=== PATIENT | male | born 1955 | race Caucasian/White ===

== ENCOUNTER 2017-02-15 19:30 | Outpatient (CLI) | payer BC | END 2017-02-15 19:31 | disposition home or self-care (01) | LOC: SLEEPLAB 19:30 | PROVIDERS: ATTEND Family Medicine | DX: G47.33 Obstructive sleep apnea (adult) (pediatric) (principal); E66.9 Obesity, unspecified; E11.9 Type 2 diabetes mellitus without complications | CPT/HCPCS: 95811 ==

== ENCOUNTER 2017-06-21 15:45 | Outpatient (CLI) | payer BC ==
[2017-06-21 16:07] LABS: Hemoglobin 14.3 g/dL (14.0-18.0); Mean Corpuscular HGB CONC 33.7 g/dL (32.0-36.0); Mean Corpuscular Hemoglobin 30.8 pg (27.0-31.0); Mean Corpuscular Volume 91.6 fl (80.0-94.0); Mean Platelet Volume 6.7 fL (7.4-10.4); Platelet Count 215 thou/uL (130-400); RBC Distribution Width 12.4 % (11.5-14.5); Red Blood Cell (RBC) Count 4.64 mill/uL (4.70-6.10); White Blood Cell (WBC) Count 6.9 thou/uL (4.8-10.8)
[2017-06-21 16:18] LABS: Anion Gap 12 mmol/L (10-20); BUN (Urea Nitrogen) 16 mg/dL (8.4-25.7); Calc. Creatinine Clearance 0 mL/min (70-130); Calcium 9.6 mg/dL (7.8-10.44); Carbon Dioxide 27 mmol/L (23-31); Chloride 102 mmol/L (98-107); Estimated GFR-MDRD 81; Glucose 132 mg/dL (80-115); Potassium 4.4 mmol/L (3.5-5.1); Sodium 137 mmol/L (136-145)
== END 2017-06-21 15:46 | disposition home or self-care (01) ==
LOC: LABBT 15:45
PROVIDERS: ATTEND Orthopaedic Surgery
DX: Z01.818 Encounter for other preprocedural examination (principal); S83.242D Other tear of medial meniscus, current injury, left knee, subsequent encounter
CPT/HCPCS: 80048; 85027; 93005; 93010

== ENCOUNTER 2017-06-27 06:17 | Day surgery (SDC) | payer BC ==
[2017-06-21 16:01] VITALS: BMI 45.2
[2017-06-27] MEDS ORDERED: Fentanyl 100 MCG/2 ML VIAL ONE ×2 (06:27→07:22)
[2017-06-27] MEDS ORDERED: Midazolam HCl 2 mg/2 ml Vial ONE (06:27)
[2017-06-27] MEDS ORDERED: PROPOFOL 20 ML ONE (06:28)
[2017-06-27] MEDS ORDERED: CEFAZOLIN/Water 2 GM/20 ML SYRINGE ONE (07:12)
[2017-06-27] MEDS ORDERED: Ondansetron PF 4 MG/2 ML Vial ONE (07:26)
[2017-06-27] MEDS ORDERED: PROPOFOL 200 MG/20 ML VIAL ONE (07:26)
[2017-06-27] MEDS ORDERED: Lidocaine 1% PF 5 ML VIAL ONE (07:26)
--- NOTE | 2017-06-27 09:27 | OP ---
DATE OF PROCEDURE: 06/27/2017 PREOPERATIVE DIAGNOSIS: Medial lateral meniscus tear. POSTOPERATIVE DIAGNOSIS: Medial lateral meniscus tear. OPERATIVE PROCEDURE: Arthroscopic partial medial meniscectomy. SURGEON: Paolo Sharif M.D. ANESTHESIA: General. BLOOD LOSS: Minimal. SPECIMENS: None. DRAINS: None. COMPLICATIONS: None. TOURNIQUET: Not used. FINDINGS AT SURGERY: Some grade 3 chondromalacia on the medial femoral condyle and the lateral femor al condyle. Large complex tear involving most of the posterior horn of the medial meniscus, lateral meniscus central tear. Scope was placed in the lateral portal and probe was placed in medial portal. I probed the meniscus tear medially, determined its extent, I debrided the meniscus using basket fo rceps and smoothed using a 4-0 full radius resector. On the medial compartment I did a partial media l meniscectomy of the tear using just a shaver. The knee was then drained. Sterile dressings aden scruggs
== END 2017-06-27 10:05 | disposition home or self-care (01) ==
LOC: SDC 06:17
PROVIDERS: ATTEND Orthopaedic Surgery
PROC: 0SBD4ZZ Excision of Left Knee Joint, Percutaneous Endoscopic Approach (ICD-10-PCS; principal; 2017-06-27)
DX: S83.272A Complex tear of lateral meniscus, current injury, left knee, initial encounter (principal); S83.242A Other tear of medial meniscus, current injury, left knee, initial encounter; E11.9 Type 2 diabetes mellitus without complications; Z79.82 Long term (current) use of aspirin; Z79.84 Long term (current) use of oral hypoglycemic drugs; Z79.899 Other long term (current) drug therapy; Z96.642 Presence of left artificial hip joint; Z98.890 Other specified postprocedural states
CPT/HCPCS: G8978-GP-CJ; G8979-GP-CJ; G8980-GP-CJ; J2001; J2250; J2405; J2704; J3010

== ENCOUNTER 2017-11-28 12:00 | Inpatient (IN) | payer BC ==
[2017-11-28 12:21] VITALS: BMI 46.7
[2017-12-10] MEDS ORDERED: Sodium Chloride 0.9% 100 ML ONE (05:57)
[2017-12-10] MEDS ORDERED: CEFAZOLIN/Water 2 GM/20 ML SYRINGE ONE (05:57)
[2017-12-10] MEDS ORDERED: Fentanyl 100 MCG/2 ML VIAL ONE ×2 (06:25→09:30)
[2017-12-10] MEDS ORDERED: Lidocaine 1% (PF) 30 ML VIAL ONE (06:25)
[2017-12-10] MEDS ORDERED: Midazolam HCl 2 mg/2 ml Vial ONE (06:25)
[2017-12-10] MEDS ORDERED: HYDROcodone/Acetaminophen 10/325 mg Tablet PO PRN (06:29)
[2017-12-10] MEDS ORDERED: traMADol HCl 50 MG TAB PO PRN ×3 (06:29→06:59)
[2017-12-10] MEDS ORDERED: Ropivacaine HCl/PF 250 ML in Premix Bag 1 BAG NERVE BLCK SCH (06:29)
[2017-12-10] MEDS ORDERED: Ketorolac Tromethamine 30 MG/ML VIAL IVP PRN (06:29)
[2017-12-10] MEDS ORDERED: Promethazine HCl 25 MG/ML VIAL IM PRN ×3 (06:29→07:42)
[2017-12-10] MEDS ORDERED: Ondansetron HCl/PF 4 MG/2 ML Vial IVP PRN ×3 (06:29→07:42)
[2017-12-10] MEDS ORDERED: Fentanyl 100 MCG/2 ML VIAL IV PRN (06:29)
[2017-12-10] MEDS ORDERED: Zolpidem Tartrate 5 MG TAB PO PRN ×2 (06:29→06:59)
[2017-12-10] MEDS ORDERED: Fentanyl 100 MCG/2 ML VIAL SLOW IVP PRN (06:59)
[2017-12-10] MEDS ORDERED: diphenhydrAMINE 25 MG CAP PO PRN (06:59)
[2017-12-10] MEDS ORDERED: Acetaminophen 325 MG TAB PO PRN (06:59)
[2017-12-10] MEDS ORDERED: Promethazine HCl 25 MG/ML VIAL SLOW IVP PRN (07:42)
[2017-12-10] MEDS ORDERED: Citrucel 500 MG TAB PO SCH (09:00)
[2017-12-10] MEDS ORDERED: Non-Formulary Item 1 EACH (Metformin Hcl [Metformin Hcl] 1 TAB) PO SCH (09:00)
[2017-12-10] MEDS ORDERED: Non-Formulary Item 1 EACH (Cholecalciferol (Vitamin D3) [Vitamin D3] 5,000 UNIT) PO SCH (09:00)
[2017-12-10] MEDS ORDERED: Non-Formulary Item 1 EACH (Multivitamin [Multivitamins] 1 CAP) PO SCH (09:00)
--- NOTE | 2017-12-10 10:06 | RAD ---
TWO VIEWS RIGHT KNEE: History: Status post arthroplasty. Comparison: None. FINDINGS: Right knee arthroplasty is noted. There are expected post-operative changes in the soft tissues. IMPRESSION: Status post right knee arthroplasty. POS: [facility]
--- NOTE | 2017-12-10 10:52 | OP ---
PREOPERATIVE DIAGNOSIS: Degenerative joint disease, right knee. POSTOPERATIVE DIAGNOSIS: Degenerative joint disease, right knee. SURGEON: Paolo Sharif M.D. CALL CENTER TRAINER: MELODY Pino. BLOOD LOSS: Minimal. SPECIMEN: None. DRAINS: None. COMPLICATIONS: None. IMPLANTS USED: [place] [employer]lon 6 femur, 6 tibia, 9 mm CSX3 polyethylene and A38 patella. PROCEDURE IN DETAIL: After informed consent was obtained in the preoperative holding area. The destiny ent was taken to the operative suite where general anesthesia was induced. Once adequate level of ge neral anesthesia was obtained, the patient was positioned and a well-padded tourniquet was placed braulio und the right proximal thigh. The right lower extremity was then prepped and draped in the usual roque rile fashion. Prior to exsanguination, a time out was called and all members of the surgical team ag jacinda upon site, surgeon, and patient. The extremity was then exsanguinated and the tourniquet was ra ised. A midline longitudinal incision was then made directly over the patella extending two fingerbr eadths above the superior pole of the patella and two fingerbreadths inferior to the inferior patella r pole of the patella. Deeper subcutaneous layers were dissected sharply and local bleeding was cont rolled with Bovie electrocautery. A quad tendon longitudinal split was then made sharply and a media n parapatellar arthrotomy was carried out both sharp and with Bovie electrocautery, carried down to o ne fingerbreadth medial to the tibial tubercle. The knee was then placed into flexion and the patell a was everted nicely, and a copious fat pad ectomy was performed allowing for greater exposure of the tibia. The computer-assisted distal femoral fiducial was then placed and pinned firmly, and the dis hillary femoral cutting guide was pinned firmly into place. The oscillating saw was then used to remove the appropriate amount of bone. The 4-in-1 cutting block was then placed on the distal femur and the oscillating saw was used to remove the appropriate amount of bone off of the anterior, posterior, an d chamfer cuts. After completion of bone cuts, the anterior cruciate ligament was resected sharply a nd the posterior cruciate ligament retractor was placed and the tibia was subluxed for better exposur e. Partial meniscectomies were carried out, and the tibial computer-assisted fiducial was pinned, an d the cutting guide was placed. Oscillating saw was then used to remove the bone with Hohmann retrac tors used to take care and protect the collateral ligaments. After the tibial resection was performe d, a laminar flat sheet maker was placed in between the freshened bone cuts. The knee placed at 90 degrees a nd further bilateral meniscectomies were carried out, and the curved osteotome and curettage was used to remove any excess bone spurs in the posterior compartment. The trial femoral component, tibial b aseplate were placed with the appropriate polyethylene trial insert with an appropriate polyethylene spacer and patellar button. The knee was taken through full range of motion with flexion and extensi on from 0-90 degrees and patellar broach squarely in the trochlea without any squinting or subluxatio n noted. The knee was also stable to varus and valgus stressing at 0, 15, 45, and 90 degrees of flex ion. The drawer was negative. All trial components were then removed and the keel punch was used to provide the appropriate defect in the tibia with a mallet. The freshened bone cuts were copiously i rrigated with pulsatile lavage of about 1-1/2 liters to remove all excess debris. The freshened bone cuts were then dried and with suction and lap sponge. The knee was placed in flexion and retractors were placed to provide access to all bone cuts. Tobramycin impregnated methyl methacrylate cement w as then placed on the freshened bone cuts and implants which were malleted firmly into place. Curett age and [place] elevators were used to remove any excess bone cement. The knee was placed into full ex tension and the patellar button was placed under compression, and the cement was allowed to cure. On ce completed, the components were again taken through full range of motion and copious irrigation of the knee was carried out with another liter of normal saline. All components were inspected fully wi th full range of motion and varus and valgus stressing. There was no laxity noted and full extension was observed clinically. Primary closure was accomplished with #2 interrupted Vicryl stitch of the arthrotomy defect. This was oversewn with a #2 running Quill barbed stitch. The gravitational plate let system was then injected into the arthrotomy prior to closure. The subcutaneous layer was then c losed with a running 0 barbed Monocryl stitch and skin closure accomplished with a running subcuticul ar 3-0 Monocryl barbed Quill stitch and augmented with cement on the skin. Tourniquet was lowered. Good spontaneous return of distal pulses was noted clinically and a sterile dressing was applied to t he incision. The procedure was terminated without any complications. The patient was awakened in th e operative suite and the tourniquet was removed, and the patient was taken to the recovery room in s table condition.
[2017-12-10] MEDS ORDERED: CEFAZOLIN/Water 2 GM/20 ML SYRINGE SLOW IVP SCH (14:00)
--- NOTE | 2017-12-10 14:10 | PDOC.PN ---
- Subjective Encounter Start Date: 12/10/17 Encounter Start Time: 14:00 Subjective: pt up in bed no complains - Objective Vital Signs & Weight: Weight Weight 354 lb Phys Exam - Physical Examination Neck: no nodes, no JVD, supple, full ROM Respiratory: no wheezing, no rales, no rhonchi, wheezing present, clear to auscultation bilateral Cardiovascular: RRR, no significant murmur, no rub, gallop, irregular Gastrointestinal: soft, non-tender, no distention, positive bowel sounds right knee dilcia wrap Dx/Plan (1) HTN (hypertension) Code(s): I10 - ESSENTIAL (PRIMARY) HYPERTENSION Status: Chronic Qualifiers: (2) Diabetes 1.5, managed as type 2 Code(s): E13.9 - OTHER SPECIFIED DIABETES MELLITUS WITHOUT COMPLICATIONS Status: Chronic (3) Status post right knee replacement Code(s): Z96.651 - PRESENCE OF RIGHT ARTIFICIAL KNEE JOINT Status: Acute - Plan pain managment per surgery -: pt's home meds started -: hh stable will continue to monitor * . Review of Systems - Review of Systems Respiratory: negative: Cough, Dry, Shortness of Breath, Hemoptysis, SOB with Excertion, Pleuritic Pain, Sputum, Wheezing Cardiovascular: negative: chest pain, palpitations, orthopnea, paroxysmal nocturnal dyspnea, edema, light headedness, other Gastrointestinal: negative: Nausea, Vomiting, Abdominal Pain, Diarrhea, Constipation, Melena, Hematochezia, Other Genitourinary: negative: Dysuria, Frequency, Incontinence, Hematuria, Retention , Other - Medications/Allergies Allergies/Adverse Reactions: Allergies Allergy/AdvReac Type Severity Reaction Status Date / Time No Known Allergies Allergy Verified 11/28/17 12:21 Medications: Current Medications Acetaminophen (Tylenol) 650 mg PO Q4H PRN PRN Reason: EDUARDO/ T > 101F; Mild Pain (1-3) Hydrocodone Bitart/Acetaminophen ([place] 10/325) 1 tab PO Q4H PRN PRN Reason: Pain (1-3) Hydrocodone Bitart/Acetaminophen ([place] 10/325) 2 tab PO Q4H PRN PRN Reason: PAIN (4-6) Aspirin (Ecotrin) 81 mg PO BID NISHI Atorvastatin Calcium (Lipitor) 10 mg PO QAM [facility] Cefazolin Sodium (Ancef) 2 gm SLOW IVP Q8HR NISHI Stop: 12/10/17 22:01 Cholecalciferol (Vitamin D3) 5,000 units PO DAILY [facility] Diphenhydramine HCl (Benadryl) 25 mg PO Q6H PRN PRN Reason: Itching Fentanyl (Sublimaze) 50 mcg IV Q1H PRN PRN Reason: BREAKTHROUGH PAIN Ferrous Gluconate (Fergon) 324 mg PO BID [facility] Glipizide (Glucotrol Xl) 5 mg PO QAM-WM [facility] Ropivacaine 250 ml/ Device 250 mls @ 0 mls/hr NERVE BLCK INF [facility] Sodium Chloride (Normal Saline 0.9%) 1,000 mls @ 100 mls/hr IV .Q10H [facility] Iron/Minerals/Multivitamins (Theragran M) 1 tab PO DAILY [facility] Ketorolac Tromethamine (Toradol) 30 mg IVP Q6H PRN PRN Reason: Moderate Pain (4-6) Stop: 12/13/17 06:30 Lisinopril (Zestril) 10 mg PO QAM [facility] Metformin HCl (Glucophage) 1,000 mg PO BID-[facility] Methylcellulose (Citrucel) 500 mg PO DAILY [facility] Ondansetron HCl (Zofran) 4 mg IVP Q6H PRN PRN Reason: Nausea/Vomiting Promethazine HCl (Phenergan) 12.5 mg IM Q4H PRN PRN Reason: Nausea Senna/Docusate Sodium (Senokot S) 2 tab PO BID [facility] Sodium Chloride (Flush - Normal Saline) 10 ml IVF PRN PRN PRN Reason: Saline Flush Tramadol HCl (Ultram) 50 mg PO Q6H PRN PRN Reason: Mild Pain (1-3) Tramadol HCl (Ultram) 100 mg PO Q6H PRN PRN Reason: Moderate Pain 4-6 Zolpidem Tartrate (Ambien) 5 mg PO HSPRN PRN PRN Reason: Insomnia
[2017-12-10] MEDS ORDERED: Lidocaine 1% PF 5 ML VIAL ONE (14:36)
[2017-12-10] MEDS ORDERED: Ketorolac Tromethamine 30 MG/ML VIAL ONE (14:36)
[2017-12-10] MEDS ORDERED: PROPOFOL 200 MG/20 ML VIAL ONE (14:36)
[2017-12-10] MEDS ORDERED: Glycopyrrolate 0.2 MG/ML 5 ML SYRINGE ONE (14:36)
[2017-12-10] MEDS ORDERED: Ondansetron HCl/PF 4 MG/2 ML Vial ONE (14:36)
[2017-12-10] MEDS: Sodium Chloride 0.9% 1,000 ML IV SCH ×2 (20:32→22:47)
[2017-12-10] MEDS: metFORMIN 500 MG TAB PO SCH (20:32)
[2017-12-10] MEDS: Citrucel 500 MG TAB PO SCH (20:33)
[2017-12-10] MEDS: Lisinopril 10 MG TAB PO SCH (20:33)
[2017-12-10] MEDS: Atorvastatin Calcium 10 MG TAB PO SCH (20:33)
[2017-12-10] MEDS: Ferrous Gluconate 324 MG TAB PO SCH ×2 (20:33→20:45)
[2017-12-10] MEDS: Aspirin 81 mg Enteric Coated Tablet PO SCH ×2 (20:33→20:45)
[2017-12-10] MEDS: Senokot S 8.6-50 MG TAB PO SCH ×2 (20:34→20:46)
[2017-12-10] MEDS: Multivitamin W/ Minerals 1 TAB PO SCH (20:34)
[2017-12-10] MEDS: HYDROcodone/Acetaminophen 10/325 mg Tablet PO PRN (20:46)
[2017-12-10] MEDS: CEFAZOLIN/Water 2 GM/20 ML SYRINGE SLOW IVP SCH (20:55)
[2017-12-11] MEDS: HYDROcodone/Acetaminophen 10/325 mg Tablet PO PRN ×4 (04:02→21:59)
[2017-12-11] MEDS: Sodium Chloride 0.9% 1,000 ML IV SCH ×2 (04:02→18:50)
[2017-12-11] MEDS: metFORMIN 500 MG TAB PO SCH ×3 (04:16→17:07)
[2017-12-11] MEDS: CEFAZOLIN/Water 2 GM/20 ML SYRINGE SLOW IVP SCH (06:00)
[2017-12-11 06:16] LABS: Hemoglobin 12.7 g/dL (14.0-18.0); Mean Corpuscular Hemoglobin 31.4 pg (27.0-31.0); Mean Corpuscular Volume 89.7 fL (78.0-98.0); Mean Platelet Volume 6.9 fL (7.4-10.4); Platelet Count 152 thou/uL (130-400); RBC Distribution Width 12.6 % (11.5-14.5); Red Blood Cell (RBC) Count 4.04 mill/uL (4.70-6.10); White Blood Cell (WBC) Count 8.1 thou/uL (4.8-10.8)
[2017-12-11] MEDS: Senokot S 8.6-50 MG TAB PO SCH ×2 (08:36→21:48)
[2017-12-11] MEDS: Lisinopril 10 MG TAB PO SCH (08:36)
[2017-12-11] MEDS: Atorvastatin Calcium 10 MG TAB PO SCH (08:37)
[2017-12-11] MEDS: Multivitamin W/ Minerals 1 TAB PO SCH (08:37)
[2017-12-11] MEDS: Ferrous Gluconate 324 MG TAB PO SCH ×2 (08:38→21:48)
[2017-12-11] MEDS: Aspirin 81 mg Enteric Coated Tablet PO SCH ×2 (08:38→21:48)
[2017-12-11] MEDS: Mag-Al 1200 mg/1200 mg/30 ML UDCUP PO PRN ×2 (18:33→21:48)
[2017-12-11] MEDS: Citrucel 500 MG TAB PO SCH (18:50)
--- NOTE | 2017-12-11 20:01 | PDOC.PN ---
- Subjective Encounter Start Date: 12/11/17 Encounter Start Time: 13:55 Subjective: pt up in bed no complains - Objective Vital Signs & Weight: Vital Signs (12 hours) Temp Pulse Resp BP BP BP Pulse Ox 12/11/17 15:56 98.7 F 109 H 16 117/73 94 L 12/11/17 11:30 98.3 F 95 16 136/84 96 12/11/17 08:36 135/84 12/11/17 08:00 97.6 F 96 18 92 L Weight Admit Weight 354 lb Weight 354 lb I&O: 12/10/17 12/11/17 12/12/17 06:59 06:59 06:59 Intake Total 1300 Output Total 600 Balance 700 Result Diagrams: 12/11/17 05:16 Phys Exam - Physical Examination Neck: no nodes, no JVD, supple, full ROM Respiratory: no wheezing, no rales, no rhonchi, wheezing present, clear to auscultation bilateral Cardiovascular: RRR, no significant murmur, no rub, gallop, irregular Gastrointestinal: soft, non-tender, no distention, positive bowel sounds right knee wrapped Dx/Plan (1) HTN (hypertension) Code(s): I10 - ESSENTIAL (PRIMARY) HYPERTENSION Status: Chronic Qualifiers: (2) Diabetes 1.5, managed as type 2 Code(s): E13.9 - OTHER SPECIFIED DIABETES MELLITUS WITHOUT COMPLICATIONS Status: Chronic (3) Status post right knee replacement Code(s): Z96.651 - PRESENCE OF RIGHT ARTIFICIAL KNEE JOINT Status: Acute - Plan mild tachycardia possible due to pain -: bp on the lower side will monitor. pt on low dose antihypertensive * . Review of Systems - Review of Systems Respiratory: negative: Cough, Dry, Shortness of Breath, Hemoptysis, SOB with Excertion, Pleuritic Pain, Sputum, Wheezing Cardiovascular: negative: chest pain, palpitations, orthopnea, paroxysmal nocturnal dyspnea, edema, light headedness, other Gastrointestinal: negative: Nausea, Vomiting, Abdominal Pain, Diarrhea, Constipation, Melena, Hematochezia, Other - Medications/Allergies Allergies/Adverse Reactions: Allergies Allergy/AdvReac Type Severity Reaction Status Date / Time No Known Allergies Allergy Verified 11/28/17 12:21 Medications: Current Medications Acetaminophen (Tylenol) 650 mg PO Q4H PRN PRN Reason: EDUARDO/ T > 101F; Mild Pain (1-3) Hydrocodone Bitart/Acetaminophen ([place] 10/325) 1 tab PO Q4H PRN PRN Reason: Pain (1-3) Hydrocodone Bitart/Acetaminophen ([place] 10/325) 2 tab PO Q4H PRN PRN Reason: PAIN (4-6) Last Admin: 12/11/17 17:06 Dose: 2 tab Al Hydroxide/Mg Hydroxide (Maalox) 30 ml PO Q2H PRN PRN Reason: Indigestion Last Admin: 12/11/17 18:33 Dose: 30 ml Aspirin (Ecotrin) 81 mg PO BID [facility] Last Admin: 12/11/17 08:38 Dose: 81 mg Atorvastatin Calcium (Lipitor) 10 mg PO QAM [facility] Last Admin: 12/11/17 08:37 Dose: 10 mg Cholecalciferol (Vitamin D3) 5,000 units PO DAILY [facility] Last Admin: 12/11/17 08:37 Dose: 5,000 units Diphenhydramine HCl (Benadryl) 25 mg PO Q6H PRN PRN Reason: Itching Fentanyl (Sublimaze) 50 mcg IV Q1H PRN PRN Reason: BREAKTHROUGH PAIN Last Admin: 12/10/17 22:02 Dose: 50 mcg Ferrous Gluconate (Fergon) 324 mg PO BID [facility] Last Admin: 12/11/17 08:38 Dose: 324 mg Glipizide (Gl[facility]otrol Xl) [facility] Last Admin: 12/11/17 08:38 Dose: 5 mg Ropivacaine 250 ml/ Device 250 mls @ 0 mls/hr NERVE BLCK INF [facility] Last Admin: 12/11/17 10:12 Dose: 250 mls Sodium Chloride (Normal Saline 0.9%) 1,000 mls @ 100 mls/hr IV .Q10H [facility] Last Admin: 12/11/17 18:50 Dose: Not Given Iron/Minerals/Multivitamins (Theragran M) 1 tab PO DAILY [facility] Last Admin: 12/11/17 08:37 Dose: 1 tab Ketorolac Tromethamine (Toradol) 30 mg IVP Q6H PRN PRN Reason: Moderate Pain (4-6) Stop: 12/13/17 06:30 Last Admin: 12/10/17 23:34 Dose: 30 mg Lisinopril (Zestril) 10 mg PO QAM [facility] Last Admin: 12/11/17 08:36 Dose: 10 mg Metformin HCl (Glucophage) 1,000 mg PO BID-WM [facility] Last Admin: 12/11/17 17:07 Dose: 1,000 mg Methylcellulose (Citrucel) 500 mg PO DAILY [facility] Last Admin: 12/11/17 18:50 Dose: Not Given Ondansetron HCl (Zofran) 4 mg IVP Q6H PRN PRN Reason: Nausea/Vomiting Promethazine HCl (Phenergan) 12.5 mg IM Q4H PRN PRN Reason: Nausea Senna/Docusate Sodium (Senokot S) 2 tab PO BID [facility] Last Admin: 12/11/17 08:36 Dose: 2 tab Sodium Chloride (Flush - Normal Saline) 10 ml IVF PRN PRN PRN Reason: Saline Flush Tramadol HCl (Ultram) 50 mg PO Q6H PRN PRN Reason: Mild Pain (1-3) Tramadol HCl (Ultram) 100 mg PO Q6H PRN PRN Reason: Moderate Pain 4-6 Zolpidem Tartrate (Ambien) 5 mg PO HSPRN PRN PRN Reason: Insomnia
[2017-12-12] MEDS: Sodium Chloride 0.9% 1,000 ML IV SCH ×2 (00:12→13:47)
[2017-12-12] MEDS: Mag-Al 1200 mg/1200 mg/30 ML UDCUP PO PRN ×2 (03:28→06:14)
[2017-12-12 05:37] LABS: Hemoglobin 12.5 g/dL (14.0-18.0); Mean Corpuscular HGB CONC 34.7 g/dL (32.0-36.0); Mean Corpuscular Hemoglobin 31.4 pg (27.0-31.0); Mean Corpuscular Volume 90.4 fL (78.0-98.0); Mean Platelet Volume 6.7 fL (7.4-10.4); Platelet Count 161 thou/uL (130-400); RBC Distribution Width 12.6 % (11.5-14.5); Red Blood Cell (RBC) Count 3.98 mill/uL (4.70-6.10); White Blood Cell (WBC) Count 8.5 thou/uL (4.8-10.8)
[2017-12-12] MEDS: HYDROcodone/Acetaminophen 10/325 mg Tablet PO PRN ×2 (06:14→13:15)
[2017-12-12] MEDS: Aspirin 81 mg Enteric Coated Tablet PO SCH (08:24)
[2017-12-12] MEDS: Atorvastatin Calcium 10 MG TAB PO SCH (08:25)
[2017-12-12] MEDS: metFORMIN 500 MG TAB PO SCH (08:25)
[2017-12-12] MEDS: Senokot S 8.6-50 MG TAB PO SCH (08:25)
[2017-12-12] MEDS: Citrucel 500 MG TAB PO SCH (08:26)
[2017-12-12] MEDS: Ferrous Gluconate 324 MG TAB PO SCH (08:26)
[2017-12-12] MEDS: Lisinopril 10 MG TAB PO SCH (08:26)
[2017-12-12] MEDS: Multivitamin W/ Minerals 1 TAB PO SCH (08:26)
[2017-12-12 12:31] VITALS: BP 146/85; TEMP 98.2
== END 2017-12-12 13:49 | disposition home or self-care (01) | DRG 470 ==
LOC: SURG A 12-10 05:44
PROVIDERS: ADMIT Orthopaedic Surgery; ATTEND Orthopaedic Surgery
PROC: 0SRC0J9 Replacement of Right Knee Joint with Synthetic Substitute, Cemented, Open Approach (ICD-10-PCS; principal; 2017-12-10)
DX: M17.11 Unilateral primary osteoarthritis, right knee (principal); I10 Essential (primary) hypertension; E11.9 Type 2 diabetes mellitus without complications; Z79.84 Long term (current) use of oral hypoglycemic drugs; Z79.82 Long term (current) use of aspirin; Z79.899 Other long term (current) drug therapy
CPT/HCPCS: 36415; 85027; 96374; C1713; C1776; G8978-GP-CM; G8979-GP-CJ; J1885; J2001; J2250; J2405; J2704; J2795; J3010; J3370; J7050

== ENCOUNTER 2017-11-28 12:04 | Outpatient (CLI) | payer BC ==
[2017-11-28 14:10] LABS: #Eosinphils 0.1 thou/uL (0.0-0.7); #Monocytes 0.5 thou/uL (0.11-0.59); %Basophils 0.4 % (0.0-1.0); %Eosinophils 1.8 % (0.0-10.0); %Lymphocytes 44.9 % (21.0-51.0); %Monocytes 7.2 % (0.0-10.0); %Neutrophils 45.7 % (42.0-75.0); Bilirubin Negative (Negative); Blood, Urine Negative (Negative); Clarity CLEAR (Clear); Glucose, Urine (Dipstick) Negative (Negative); Hemoglobin 14.1 g/dL (14.0-18.0); Leukocyte Negative (Negative); Mean Corpuscular HGB CONC 33.7 g/dL (32.0-36.0); Mean Corpuscular Hemoglobin 30.6 pg (27.0-31.0); Mean Corpuscular Volume 90.8 fL (78.0-98.0); Mean Platelet Volume 7.2 fL (7.4-10.4); Nitrite Negative (Negative); Platelet Count 194 thou/uL (130-400); Protein, Urine (Dipstick) Negative (Neg-Trace); RBC Distribution Width 12.8 % (11.5-14.5); Red Blood Cell (RBC) Count 4.61 mill/uL (4.70-6.10); Specific Gravity, Urine 1.021 (1.002-1.036); Urobilinogen 0.2 mg/dL (0.2-1.0); White Blood Cell (WBC) Count 6.7 thou/uL (4.8-10.8)
[2017-11-28 14:13] LABS: Bacteria/HPF None Seen HPF (None Seen); Hyaline Casts/LPF 0-3 HYALINE CAST LPF (0-3 Hyaline); RBC/HPF 0-3 HPF (0-3); Squamous Epithelial None Seen HPF (0-3); WBC/HPF None Seen HPF (0-3)
[2017-11-28 14:16] LABS: Prothrombin Time 13.5 SEC (12.0-14.7)
--- NOTE | 2017-11-28 14:17 | RAD ---
2 VIEWS CHEST: Date: 11/28/17 PROVIDED CLINICAL HISTORY: Preop. FINDINGS: Comparison with 03/20/16. Cardiac and mediastinal silhouette is within normal limits. Lungs appear clear. No pleural fluid or p neumothorax apparent. IMPRESSION: No evidence for an acute cardiopulmonary process. POS: [facility]
[2017-11-28 14:34] LABS: Anion Gap 14 mmol/L (10-20); BUN (Urea Nitrogen) 13 mg/dL (8.4-25.7); Calc. Creatinine Clearance 0 mL/min (70-130); Calcium 9.1 mg/dL (7.8-10.44); Carbon Dioxide 22 mmol/L (23-31); Chloride 104 mmol/L (98-107); Estimated GFR-MDRD Greater than 90; Glucose 127 mg/dL (80-115); Potassium 4.2 mmol/L (3.5-5.1); Sodium 136 mmol/L (136-145)
== END 2017-11-28 12:05 | disposition home or self-care (01) ==
LOC: LABBT 12:04
PROVIDERS: ATTEND Orthopaedic Surgery
DX: Z01.818 Encounter for other preprocedural examination (principal); M17.11 Unilateral primary osteoarthritis, right knee
CPT/HCPCS: 71046; 80048; 81001; 85025; 85610; 87081; 93005; 93010

== ENCOUNTER 2017-12-05 15:48 | Outpatient (CLI) | payer BC | END 2017-12-05 15:49 | disposition home or self-care (01) | LOC: LABBT 15:48 | PROVIDERS: ATTEND Orthopaedic Surgery | DX: Z01.818 Encounter for other preprocedural examination (principal); M17.11 Unilateral primary osteoarthritis, right knee | CPT/HCPCS: 86850; 86900; 86901 ==

== ENCOUNTER 2018-09-02 07:17 | Outpatient (CLI) | payer BC ==
[2018-09-03] MEDS ORDERED: Regadenoson 0.4 MG/5 ML SYRINGE ONE (10:20)
--- NOTE | 2018-09-03 10:29 | NM ---
Nuclear medicine Cardiac myocardial perfusion SPECT Ejection fraction study Wall motion cine: DATE:09/03/2018 TECHNIQUE: Number of days:2 Rest study: Technetium 99m-sestamibi (Cardiolite) dose:33 mCi Stress study: Technetium 99m-sestamibi (Cardiolite) dose:33 mCi FINDINGS: Cardiac (myocardial perfusion) SPECT There are no reversible myocardial perfusion defects. Ejection fraction study Left ventricular EF = 75% Wall motion cine Normal wall motion and thickening. IMPRESSION: No evidence of reversible myocardial ischemia.
== END 2018-09-02 07:18 | disposition home or self-care (01) ==
LOC: NM 07:17
PROVIDERS: ATTEND Family Medicine
DX: N52.9 Male erectile dysfunction, unspecified (principal); R53.81 Other malaise
CPT/HCPCS: 78452; 93017; A9500

== ENCOUNTER 2020-02-02 07:31 | Outpatient (CLI) | payer BC, OTHER ==
[2020-02-02 17:56] LABS: #Eosinphils 0.1 thou/uL (0.0-0.7); #Lymphocytes 3.6 thou/uL (1.20-3.40); #Monocytes 0.8 thou/uL (0.11-0.59); %Basophils 0.5 % (0.0-1.0); %Eosinophils 0.7 % (0.0-10.0); %Lymphocytes 37.7 % (21.0-51.0); %Monocytes 8.1 % (0.0-10.0); Hemoglobin 15.1 g/dL (14.0-18.0); Mean Corpuscular HGB CONC 33.9 g/dL (32.0-36.0); Mean Corpuscular Hemoglobin 30.8 pg (27.0-31.0); Mean Corpuscular Volume 90.8 fL (78.0-98.0); Mean Platelet Volume 7.4 fL (7.4-10.4); Platelet Count 210 thou/uL (130-400); RBC Distribution Width 12.6 % (11.5-14.5); Red Blood Cell (RBC) Count 4.89 mill/uL (4.70-6.10); White Blood Cell (WBC) Count 9.4 thou/uL (4.8-10.8)
[2020-02-02 18:31] LABS: Bacteria/HPF None Seen HPF (None Seen); Bilirubin Negative (Negative); Blood, Urine Negative (Negative); Clarity Clear (Clear); Glucose, Urine (Dipstick) 30 mg/dL (Negative); Ketone, Urine Negative (Negative); Leukocyte Negative Leu/uL (Negative); Mucous/LPF 1+ LPF (<2+); Nitrite Negative (Negative); Protein, Urine (Dipstick) 10 mg/dL (Neg-Trace); RBC/HPF 0-3 HPF (0-3); Specific Gravity, Urine 1.033 (1.002-1.036); Squamous Epithelial None Seen HPF (0-3); Urobilinogen Normal mg/dL (Less than 2); WBC/HPF 0-3 HPF (0-3); pH, Urine 5.5 (5.0-9.0)
--- NOTE | 2020-02-03 07:13 | EKG ---
Test Reason : Blood Pressure : / mmHG Vent. Rate : 091 BPM Atrial Rate : 091 BPM P-R Int : 158 ms QRS Dur : 084 ms QT Int : 350 ms P-R-T Axes : 028 038 004 degrees QTc Int : 430 ms Normal sinus rhythm Possible Inferior infarct , age undetermined Cannot rule out Anterior infarct , age undetermined Abnormal ECG No previous ECGs available Confirmed by DR. Johnny TREVINO ([id number]) on 02/03/2020 7:12:38 AM Referred By: NANCY Confirmed By:DR. Johnny TREVINO
[2020-02-03 11:55] LABS: SARS-CoV-2 MS2 Positive; SARS-CoV-2 N Gene Negative; SARS-CoV-2 S Gene Negative; SARS-CoV-2 by NAA Not Detected (NotDetected); SARS-CoV-2 orf1ab Negative
== END 2020-02-02 07:32 | disposition home or self-care (01) ==
LOC: LABBT 07:31
PROVIDERS: ATTEND Orthopaedic Surgery Hand Surgery
DX: Z01.818 Encounter for other preprocedural examination (principal); Z20.828 Contact with and (suspected) exposure to other viral communicable diseases; G56.01 Carpal tunnel syndrome, right upper limb; G56.21 Lesion of ulnar nerve, right upper limb
CPT/HCPCS: 81001; 85025; 87635; 93005; 93010; U0003

== ENCOUNTER 2020-02-05 05:50 | Day surgery (SDC) | payer BC ==
[2020-02-03 14:56] VITALS: BMI 44.1
[2020-02-05] MEDS ORDERED: Sodium Chloride 0.9% 10 ML ONE (06:26)
[2020-02-05] MEDS ORDERED: Bacitracin Zinc Ointment 30 gm TUBE ONE (06:26)
[2020-02-05] MEDS ORDERED: Betamet Acet/Betamet Na Ph 30 MG/5 ML VIAL ONE (06:26)
[2020-02-05] MEDS ORDERED: Bupivacaine PF 0.5% 30 ML VIAL ONE ×2 (06:26→09:41)
[2020-02-05] MEDS ORDERED: Fentanyl 100 MCG/2 ML VIAL ONE ×2 (06:58→10:53)
[2020-02-05] MEDS ORDERED: EPHEDRINE 25 MG/5 ML SYRINGE ONE (10:14)
[2020-02-05] MEDS ORDERED: PROPOFOL 200 MG/20 ML VIAL ONE (10:14)
[2020-02-05] MEDS ORDERED: Ketorolac Tromethamine 30 MG/ML VIAL ONE ×2 (10:14→10:54)
[2020-02-05] MEDS ORDERED: Lidocaine 1% PF 5 ML VIAL ONE (10:14)
[2020-02-05] MEDS ORDERED: Ondansetron PF 4 MG/2 ML Vial ONE (10:14)
--- NOTE | 2020-02-05 14:09 | OP ---
DATE OF PROCEDURE: 02/05/2020 PREOPERATIVE DIAGNOSES: 1. Right cubital tunnel syndrome. 2. Right carpal tunnel syndrome. POSTOPERATIVE DIAGNOSES: 1. Right cubital tunnel syndrome. 2. Right carpal tunnel syndrome. 3. Marked olecranon bursitis at the same right elbow. PROCEDURES PERFORMED: 1. Right radical olecranon bursectomy. 2. Right carpal tunnel release. 3. Right cubital tunnel release with subcutaneous transposition. TOURNIQUET TIME: 70 minutes total. ESTIMATED BLOOD LOSS: 25 mL. FINDINGS: 1. Again, very tight transverse carpal ligament with early stippling. No hourglass formation. No flexor tenosynovitis. 2. Olecranon bursa, very thick with the ulnar nerve compressed in at least 3 specific sites; one, medial intermuscular septum; two, both heads of the FCR indefinitely very flat with uninvolving of the nerve underneath the primary cubital tunnel. INDICATIONS: Failed conservative treatment with positive EMGs at both sites. DESCRIPTION OF PROCEDURE: After successful general endotracheal anesthesia, the limb was prepped and draped. We outlined the carpal tunnel incision in line with the ring finger from mediolateral as far distal as Collins's cardinal line as far as proximal as 5 mm distal to the volar wrist flexion crease. Then, we outlined a midline incision that was 5 cm distal and 8 cm proximal to the olecranon in the midline and only off the olecranon tip by 1 cm in a zigzag fashion. We then placed a sterile tourniquet, exsanguinated the limb, outlined the 2 incisions and then injected with a total of 30 mL of 0.5% Marcaine, 10 at the carpal tunnel and 20 at the cubital tunnel before incision. An additional 10 would be given at each incision at the end of the procedure. The patient then had the limb exsanguinated, tourniquet inflated to 250 mmHg pressure, and we made a transverse carpal outlined incision and carried through skin and subcutaneous tissue down to the transverse carpal ligament with a skin knife. We used a combination of tenotomy scissors and [place] blade to identify the transverse carpal ligament. Then, we entered the transverse carpal ligament with Weitlaner self retainer for retraction using a [place] blade from the midpoint distally. Once we had done this, and all the median nerve branches were intact, then we released it from the midportion proximally. Here, we saw there was no flexor tenosynovitis and only minimal stippling without hourglass formation of the median nerve. We placed 3 mL of Celestone here, closed the incision with interrupted 4-0 nylon and the transverse carpal ligament was completely released. We then placed a large sterile towel pack onto the arm, with the arm over the opposite shoulder and flexed at 90 degrees at the elbow. We then made the incision to include the slight medial zigzag at the olecranon tip, carried through skin and subcutaneous tissue, and immediately saw the olecranon bursal irritation. We then identified the ulnar nerve as far proximal in the field when it was held by fascial bands into the triceps and began a proximal to distal release using the registered dental assistant holding a DeBakey, along with the surgeon holding a DeBakey, and we made a complete release. Once we got to the area of the intermuscular septum, it became very tight and we had to carefully release almost 1 mm at a time. Then this took us into the [place] cubital tunnel, which was flattening of the nerve and here we saw first uninvolved post flattened dilatation. The same was seen at the 2 heads of the flexor and we released all the heads of the flexors and began to notice that the nerve was uninvolved, flattened in several places, so we excised a 6 cm section of the intermuscular septum from the medial epicondyle proximally and then began to free the ulnar nerve, so it could be transposed. We created a subcutaneous fat pocket and gently transposed the nerve into this pocket, closed it with interrupted [id number] 0 Vicryl. We released the tourniquet. The nerve was under no compression. We then obtained hemostasis. We performed a radical olecranon bursa and sent a sample of this as a specimen in normal saline. Hemostasis was excellent. We placed 5 mL of Celestone over the ulnar nerve here, closed the subcutaneous tissue with a running 3-0 undyed Monocryl, closed the epidermis with interrupted 4-0 and 3-0 nylon in a mattress pattern and the patient had the last portion of the Marcaine given 10 in each incision. Bulky dressing was applied, at both sites, then Webril, sterile, and full splint with the elbow at -50 degrees from full extension on the ulnar aspect. He left the operating room without evidence of anesthetic or operative complication. Job ID: [id number]
== END 2020-02-05 11:35 | disposition home or self-care (01) ==
LOC: SDC 05:50
PROVIDERS: ATTEND Orthopaedic Surgery Hand Surgery
PROC: 01N50ZZ Release Median Nerve, Open Approach (ICD-10-PCS; principal; 2020-02-05)
PROC: 0MB30ZZ Excision of Right Elbow Bursa and Ligament, Open Approach (ICD-10-PCS; principal; 2020-02-05)
DX: M70.21 Olecranon bursitis, right elbow (principal); G56.01 Carpal tunnel syndrome, right upper limb; G56.21 Lesion of ulnar nerve, right upper limb; E11.9 Type 2 diabetes mellitus without complications; M19.041 Primary osteoarthritis, right hand; M48.02 Spinal stenosis, cervical region
CPT/HCPCS: 88305; J0690; J0702; J1885; J2405; J2704; J3010; J3490; S0020

== ENCOUNTER 2020-12-20 05:58 | Day surgery (SDC) | payer BC ==
[2020-12-16 14:55] VITALS: BMI 46.0
[2020-12-20] MEDS ORDERED: Bupivacaine PF 0.5% 30 ML VIAL ONE (06:17)
[2020-12-20] MEDS ORDERED: Bacitracin Zinc Ointment 30 gm TUBE ONE (06:17)
[2020-12-20] MEDS ORDERED: Neomycin-Polymyxin 1 ML AMP ONE (06:17)
[2020-12-20] MEDS ORDERED: Betamet Acet/Betamet Na Ph 30 MG/5 ML VIAL ONE (06:17)
[2020-12-20] MEDS ORDERED: Acetaminophen 500 MG TAB ONE (07:04)
[2020-12-20] MEDS ORDERED: Lidocaine 1% PF 5 ML VIAL ONE (07:18)
[2020-12-20] MEDS ORDERED: Ondansetron PF 4 MG/2 ML Vial ONE (07:18)
[2020-12-20] MEDS ORDERED: Ketorolac Tromethamine 30 MG/ML VIAL ONE (07:18)
[2020-12-20] MEDS ORDERED: PROPOFOL 200 MG/20 ML VIAL ONE (07:18)
== END 2020-12-20 10:00 | disposition home or self-care (01) ==
LOC: SDC 05:58
PROVIDERS: ATTEND Orthopaedic Surgery Hand Surgery
PROC: 01N50ZZ Release Median Nerve, Open Approach (ICD-10-PCS; principal; 2020-12-20)
DX: G56.02 Carpal tunnel syndrome, left upper limb (principal); M48.02 Spinal stenosis, cervical region; M19.041 Primary osteoarthritis, right hand; M65.331 Trigger finger, right middle finger; G56.12 Other lesions of median nerve, left upper limb; E11.9 Type 2 diabetes mellitus without complications; Z79.82 Long term (current) use of aspirin; Z79.84 Long term (current) use of oral hypoglycemic drugs; Z79.899 Other long term (current) drug therapy
CPT/HCPCS: J0690; J0702; J1885; J2405; J2704; S0020